=== PATIENT | female | born 1990 | race Caucasian/White ===

== ENCOUNTER 2023-04-21 19:24 | Emergency (ER) | payer SELFPAY ==
[~2023-04-21] VITALS: Ht 162.6 cm; Wt 67.1 kg
--- NOTE | 2023-04-21 19:50 | NUR ---
BIBFRIEND WITH CC OF [facility] TODAY. PT IS 7 WEEKS . LMP 03/08/23 HAD BLOOD TINGE(PINKISH) IN THE TISSUE WHEN SHE WIPE HER PERINEAL AREA
--- NOTE | 2023-04-21 19:56 | NUR ---
URINE SPECIMEN SENT TO LAB
--- NOTE | 2023-04-21 19:58 | NUR ---
US TECH AT BED SIDE
--- NOTE | 2023-04-21 20:10 | NUR ---
STOCK TRACER AT PT'S BEDSIDE
[2023-04-21 20:28] LABS: BASOPHILS % (AUTO) 0.6 % (0.0-2.0); EOSINOPHILS % (AUTO) 1.3 % (0.0-6.0); HEMATOCRIT 38 % (33-45); HEMOGLOBIN 12.8 g/dL (11.5-14.8); LYMPHOCYTES # (AUTO) 2.1 K/uL (0.8-4.8); LYMPHOCYTES % (AUTO) 32.1 % (20.0-44.0); MEAN CORPUSCULAR HGB CONC 34 g/dl (31.0-36.0); MEAN CORPUSCULAR VOLUME 90 fL (82-100); MONOCYTES # (AUTO) 0.5 K/uL (0.1-1.30); MONOCYTES % (AUTO) 8.4 % (2.0-12.0); NEUTROPHILS # (AUTO) 3.7 K/uL (1.8-8.9); NEUTROPHILS % (AUTO) 57.6 % (43.0-81.0); PLATELET COUNT (AUTO) 239 K/uL (150-450); RED BLOOD CELL COUNT(AUTO) 4.26 MIL/uL (4.0-5.2); WHITE BLOOD COUNT (AUTO) 6.5 K/uL (4.3-11.0)
[2023-04-21 20:39] LABS: CALCIUM, SERUM 9.6 mg/dL (8.5-10.1); CREATININE 0.6 mg/dL (0.6-1.3); POTASSIUM 4.2 mmol/L (3.5-5.1)
[2023-04-21 21:21] LABS: BILIRUBIN,URINE NEGATIVE (NEGATIVE); COLOR,URINE YELLOW (YELLOW); LEUKOCYTE ESTERASE ,URINE TRACE (NEGATIVE); NITRITE, URINE NEGATIVE (NEGATIVE); PROTEIN,URINE NEGATIVE (NEGATIVE); UGLUCOSE NEGATIVE (NEGATIVE); UROBILINOGEN,URINE 0.2 EU/dL (0.2)
--- NOTE | 2023-04-21 21:48 | NUR ---
Patient discharged to home in stable condition. Written and verbal after care instructions given. Patient verbalizes understanding of instruction. PT ambulatory with a steady gait
[2023-04-21 22:02] VITALS: BP 111/72
[2023-04-21 22:20] LABS: RBC,URINE 21-50 /HPF (0-2)
[2023-04-21 22:21] LABS: BACTERIA,URINE None seen /HPF (None Seen)
== END 2023-04-21 22:03 | disposition home or self-care (01) ==
LOC: ER 19:29
DX: O20.0 Threatened abortion (principal); Z3A.01 Less than 8 weeks gestation of pregnancy
CPT/HCPCS: 36415; 76805-TC; 80048-TC; 81001; 84702-TC; 85025-TC; 86850-TC